=== PATIENT | female | born 1960 | race Caucasian/White ===

== ENCOUNTER → 2018-09-07 | Emergency (ER) | payer OTHER ==
[~2018-09-07] VITALS: Ht 152.4 cm; Wt 57.2 kg
[~2018-09-07] MED LIST: ACID CONTROLLER20 MG; CIPRO750 MG; GLYCOPYRROLATE2 MG; PANTOPRAZOLE SO40 MG; PENTASA500 MG
== END | disposition home or self-care (01) ==
LOC: ER 15:40
DX: B34.9 Viral infection, unspecified (principal)

== ENCOUNTER 2021-05-19 07:32 | Emergency (ER) | payer OTHER ==
[~2021-05-19] VITALS: Ht 167.6 cm; Wt 57.2 kg
== END 2021-05-19 13:16 | disposition home or self-care (01) ==
LOC: ER 07:32
DX: R00.2 Palpitations (principal); Z11.52 Encounter for screening for COVID-19

== ENCOUNTER 2021-08-01 12:26 | Emergency (ER) | payer OTHER ==
[~2021-08-01] VITALS: Ht 167.6 cm; Wt 72.6 kg
[2021-08-01] MEDS ORDERED: ALPRAZOLAM OD0.25 MG PO (13:00)
[2021-08-01] MEDS ORDERED: LEXAPRO5 MG PO (13:00)
[2021-08-01] MEDS ORDERED: PROTONIX40 MG PO (13:01)
[2021-08-01] MEDS ORDERED: CHLORDIAZEPOXI1 EACH PO (13:01)
== END 2021-08-01 16:20 ==
LOC: ER 12:26
DX: R00.2 Palpitations (principal); K29.70 Gastritis, unspecified, without bleeding; F06.4 Anxiety disorder due to known physiological condition; Z20.822 Contact with and (suspected) exposure to COVID-19

== ENCOUNTER 2025-01-01 20:19 | Emergency (ER) | payer OTHER ==
[~2025-01-01] VITALS: Ht 167.6 cm; Wt 59.0 kg
[~2025-01-01 20:19] MED LIST changes: +ALPRAZOLAM OD0.25 MG PO; +CHLORDIAZEPOXI1 EACH PO; +LEXAPRO5 MG PO; +PROTONIX40 MG PO
[2025-01-01] MEDS ORDERED: CEFTRIAXONE SODIUM 1,000 MG VIAL IM ONE (21:45)
== END 2025-01-01 22:53 | disposition home or self-care (01) ==
LOC: ER 20:35
DX: J02.9 Acute pharyngitis, unspecified (principal)
CPT/HCPCS: 96372; 99282; J0696

== ENCOUNTER → 2025-03-31 09:46 | Outpatient (CLI) | payer OTHER | END | disposition home or self-care (01) | LOC: NUCLEAR 09:46 | PROVIDERS: ATTEND Internal Medicine Cardiovascular Disease | DX: R07.9 Chest pain, unspecified (principal) ==